=== PATIENT | female | born 1950 | race Caucasian/White ===

== ENCOUNTER → 2018-10-22 | Outpatient (CLI) | payer MEDICARE, OTHER ==
--- NOTE | 2018-10-22 09:55 | RADIOLOGY REPORT (SQ) ---
EXAM DESCRIPTION: UGI SERIES COMPLETED DATE/TIME: 10/22/2018 8:46 am REASON FOR STUDY: DIAPHRAGMATIC HERNIA (K44.9), ABD PAIN (R10.9), CHEST PAIN (R07.9) K44.9 DIAPHRAG MATIC HERNIA WITHOUT OBSTRUCTION OR GANGRENE R10.9 UNSPECIFIED ABDOMINAL PAIN R07.9 CHEST PAIN, UNS PECIFIED COMPARISON: None. TECHNIQUE: Under fluoroscopic guidance, patient ingested effervescent granules followed by thick and thin barium. Fluoroscopic spot images and routine radiographic images acquired and stored on PACS. 12 MM BARIUM TABLET GIVEN: yes No significant delay in passage. LIMITATIONS: None. FLUOROSCOPY TIME: FLUORO TIME: 2 minutes 46 seconds 35 series of digital fluoro images saved to PACS. FINDINGS: NEUROMUSCULAR COORDINATION OF SWALLOW: Normal. No aspiration. ESOPHAGEAL MOTILITY: Normal peristalsis. Occasional tertiary contractions. ESOPHAGEAL MUCOSA: Normal mucosa without masses or ulceration. GASTRO-ESOPHAGEAL JUNCTION: The gastroesophageal junction is below the left hemidiaphragm. No Roula ki's ring. No distal esophageal stricture or gastroesophageal reflux. STOMACH: There is organoaxial volvulus, with the body and antrum of the stomach anterior and superior to the GE junction and gastric outlet. At fluoroscopy, there is an elevated left hemidiaphragm with out diaphragmatic motion on respiration. Configuration of the stomach likely represents organoaxial volvulus rather than a large paraesophageal hernia. GASTRIC OUTLET: No delay in emptying. Normal pylorus. DUODENAL BULB: Normal distention. No spasm or ulceration. DUODENUM: Mucosa normal. No extrinsic masses or malrotation. PROXIMAL SMALL BOWEL: Mucosa normal. No extrinsic masses or malrotation. NON-GI TRACT STRUCTURES: Elevated left hemidiaphragm without respiratory excursion OTHER: No other significant finding. 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 Elevated paralyzed left hemidiaphragm. COMMENT: Quality ID [id number]: Final reports for procedures using fluoroscopy that document radiation exp osure indices, or exposure time and number of fluorographic images (if radiation exposure indices are not available) TECHNICAL DOCUMENTATION: JOB ID: [id number] [employer]- All Rights Reserved Reading location - IP/workstation name: [facility]
== END ==
LOC: RAD 07:33
PROVIDERS: ATTEND Internal Medicine Gastroenterology
DX: K44.9 Diaphragmatic hernia without obstruction or gangrene (principal); R10.9 Unspecified abdominal pain; R07.9 Chest pain, unspecified
CPT/HCPCS: 74247